=== PATIENT | male | born 1940 | race Asian ===

== ENCOUNTER 2021-06-22 17:15 | Emergency (ER) | payer MEDICARE, OTHER ==
[~2021-06-22] VITALS: Ht 157.5 cm; Wt 56.8 kg
[2021-06-22 17:41] LABS: GLUCOSE,POINT OF CARE 211 MG/DL (70-110)
[2021-06-22 19:42] VITALS: BP 159/62
== END 2021-06-22 20:10 | disposition home or self-care (01) ==
LOC: EMS 17:18
DX: J20.9 Acute bronchitis, unspecified (principal); I10 Essential (primary) hypertension; E11.9 Type 2 diabetes mellitus without complications
CPT/HCPCS: 71045; 82962; 99283